=== PATIENT | female | born 1930 | race Caucasian/White ===

== ENCOUNTER 2016-07-18 12:59 | Inpatient (IN) | payer MEDICARE, BC ==
[2016-07-18 14:26] LABS: Hematocrit 40 % (35-47); Mean Corpuscular HGB Conc 33 g/dl (31-36); Mean Corpuscular Hemoglobin 34 pg (27-31); Mean Corpuscular Volume 102 fL (80-97); Mean Platelet Volume 8 um3 (7.4-10.4); Red Blood Count 3.88 10^6/ul (4.0-5.4); Red Cell Distribution Width 18 % (10.5-15); White Blood Count 14.2 10^3/ul (3.5-10.8)
[2016-07-18] MEDS ORDERED: Morphine INJ* 10 MG/ML 1 ML CARPUJECT IV ONE ×2 (14:43→16:19)
[2016-07-18 18:20] LABS: Albumin 3.6 g/dL (3.2-5.2); BUN/Creatinine Ratio 21.5 (8-20); Calcium 8.8 mg/dL (8.6-10.3); EGFR African American 111.1 (>60); EGFR Non-African American 86.4 (>60); Globulin 3.1 g/dL (2-4); Potassium 3.7 mmol/L (3.5-5.0); Total Bilirubin 0.6 mg/dL (0.2-1.0); Total Protein 6.7 g/dL (6.4-8.9)
[2016-07-18] MEDS ORDERED: Iohexol 350* (CONTRAST) 500 ML MDV IV ONE (18:22)
--- NOTE | 2016-07-18 19:14 | RAD ---
HISTORY: Right flank and rib pain, history of cancer COMPARISONS: April 21, 2016, May 22, 2016 TECHNIQUE: Multiple contiguous axial CT scans were obtained of the chest, abdomen, and pelvis after the administration of intravenous contrast. Coronal and sagittal multiplanar reformations are submitted for review.. Oral contrast was administered. Delayed images were obtained through the abdomen FINDINGS: CHEST NECK AND THYROID: The lower neck and thyroid are unremarkable. CHEST WALL: There is no lower cervical, axillary, or supraclavicular lymphadenopathy by size criteria. HEART AND PERICARDIUM: The heart is unremarkable. AORTA AND PULMONARY VASCULATURE: There is calcification of the thoracic aorta. The pulmonary vasculature is unremarkable. There is no pulmonary arterial filling defect to suggest pulmonary is in MEDIASTINUM: There is no mediastinal lymphadenopathy by size criteria. LUCA: There is no hilar lymphadenopathy by size criteria. AIRWAY AND ESOPHAGUS: The airway is unremarkable, without endobronchial filling defect. The esophagus is grossly normal. LUNG PARENCHYMA: There is centrilobular emphysematous change. PLEURA: Unremarkable. BONES AND SOFT TISSUES: There is diffuse osteopenia. Degenerative changes are noted of the spine. There is a nondisplaced left-sided rib fracture of the left 11th rib. ABDOMEN/PELVIS: LIVER: Again noted are multiple hepatic parenchymal masses. There has been progression of disease when compared to May 22, 2016. This is most evident in a confluent grouping of masses in the anterior right lobe of the liver. The largest lesion in this group measures 4.3 cm on axial image 16 compared to 3.6 cm on the previous examination. BILE DUCTS: There is no intrahepatic or extrahepatic biliary dilatation. GALLBLADDER: The gallbladder is normal, without pericholecystic inflammatory change. PANCREAS: The pancreas is normal, without mass or ductal dilatation. SPLEEN: Normal in size and appearance. UPPER GI TRACT: Evaluation of the gastrointestinal tract is limited by incomplete gastric distention. The upper GI tract is unremarkable. SMALL BOWEL \T\ MESENTERY: The small bowel is normal in contour, course, and caliber. There is no obstruction or dilatation. COLON: A colostomy is noted. The patient appears to be status post partial colectomy. ADRENALS: Normal bilaterally. KIDNEYS: The kidneys are normal in shape, size, contour, and axis. There is no hydronephrosis or nephrolithiasis. BLADDER: The bladder is smooth in contour. PELVIC ORGANS: The pelvic organs are not visualized. AORTA: There is calcific atherosclerotic disease of the abdominal aorta and its branches, without aneurysmal dilatation IVC: Unremarkable LYMPH NODES: There is no lymphadenopathy by size criteria. ABDOMINAL WALL: There is no evidence for abdominal wall hernia. BONES: There is a scoliotic curvature of the spine. There is degenerative disc disease and osteoarthritis. OTHER: There is a large amount of free intraperitoneal air IMPRESSION: 1. LARGE AMOUNT OF FREE INTRAPERITONEAL AIR CONCERNING FOR PERFORATION. THE SOURCES NOT CLEARLY EVIDENT ON THE CURRENT EXAMINATION. 2. NO PULMONARY ARTERIAL FILLING DEFECT TO SUGGEST PULMONARY EMBOLISM. 3. NONDISPLACED FRACTURE OF THE LEFT 11TH RIB. 4. AGAIN NOTED ARE HEPATIC LOW-ATTENUATION LESIONS MOST CONSISTENT WITH METASTATIC DISEASE, WITH PROGRESSION WHEN COMPARED TO MAY 22, 2016 PRELIMINARY FINDINGS WERE DISCUSSED WITH DR. DUARTE IN THE EMERGENCY DEPARTMENT AT APPROXIMATELY 7:05 PM ON JULY 18, 2016.
--- NOTE | 2016-07-18 20:23 | ED ---
Red Mcclain Anna, scribed for Alexandr Mendes MD on 07/18/16 at 1519 . Complex/Multi-Sys Presentation - HPI Summary HPI Summary: Patient is an 86-year-old female coming to [facility] presenting with sudden onset of constant right-sided pain from her shoulder to her hip that began at 1:30 this morning with no apparent cause. She describes it as located around her ileostomy from her shoulder down to her hip, radiating to her lower left abdomen. The pain is exacerbated when she raises her right hand. She reports that her head also feels stuffed and that she is congested. She denies hematuria. She has not smoked since she retired in July 1992. Her pain is not noticeably exacerbated by breathing. Patient has had cancer for a year, first colorectal then liver. She had chemotherapy treatment and radiation therapy at the same time. She is now just receiving chemotherapy treatment. - History Of Current Complaint Chief Complaint: EDFlankPain Time Seen by Provider: 07/18/16 13:48 Hx Obtained From: Patient - Allergies/Home Medications Allergies/Adverse Reactions: Allergies Allergy/AdvReac Type Severity Reaction Status Date / Time Penicillin G AdvReac Intermediate UTI Verified 07/18/16 13:10 [From Penicillin Potassium-G] Cephalexin [From Keflex] AdvReac Diarrhea Verified 07/18/16 13:10 PMH/Surg Hx/FS Hx/Imm Hx Previously Healthy: No Endocrine/Hematology History: Denies: Hx Diabetes Cardiovascular History: Reports: Hx Hypertension - WELL CONTROLLED Denies: Hx Congestive Heart Failure, Hx Pacemaker/ICD GI History: Reports: Other GI Disorders - RECTAL CANCER History: Reports: Hx Renal Disease - abnormal gfr Denies: Hx Dialysis Musculoskeletal History: Reports: Hx Arthritis - HANDS ,FEET, KNEES, SHOULDER Sensory History: Reports: Hx Cataracts - BILATERAL, Hx Contacts or Glasses - GLASSES Denies: Hx Hearing Aid Opthamlomology History: Reports: Hx Cataracts - BILATERAL, Hx Contacts or Glasses - GLASSES Neurological History: Reports: Other Neuro Impairments/Disorders - M[facility]ONS NEUROMA Psychiatric History: Denies: Hx Panic Disorder - Cancer History Cancer Type, Location and Year: RECTAL CA - 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 1964 HYSTERECTOMY [facility]. 1996 RIGHT FOOT BUNIONECTOMY [facility]. 10/2013 & 11/2013 CATARCT EXTRACTION [facility] [place]. Lt REVISION - FOOT- 01/2014, ileostomy Hx Anesthesia Reactions: No Infectious Disease History: No Infectious Disease History: Reports: Hx Clostridium Difficile - 2014 Denies: Traveled Outside the in Last 30 Days - Family History Known Family History: Positive: Other - Arthritis - Social History Occupation: Retired Lives: Alone Alcohol Use: None Alcohol Amount: none for over a year Hx Substance Use: No Substance Use Type: Reports: None Hx Tobacco Use: Yes Smoking Status (MU): Former Smoker Type: Cigarettes Amount Used/How Often: 1 PPD FOR 44 YRS Length of Time of Smoking/Using Tobacco: 44 YRS Have You Smoked in the Last Year: No Review of Systems ENT: Other - congestion Positive: Abdominal Pain Positive: Myalgia - right-sided pain Positive: Headache - "stuffed head" All Other Systems Reviewed And Are Negative: Yes Physical Exam - Summary Physical Exam Summary: General: Visibly uncomfortable, pleasant, alert HEENT: Moist mucosa, pupils equal Neck: soft, supple, no adenopathy, no edema Heart: S1, S2, RRR, no murmurs, rubs, or gallops Lungs: Clear to auscultation, breathing comfortable, no wheezes or rales, diminished breath sounds bilaterally Abdominal: Soft, flat, obvious tenderness diffusely about ileostomy, which is full of stool and gas. Ileostomy itself appears pink. Extremities: No edema, no calf tenderness, soft, Musculoskeletal: No midline spinal percussion tenderness, Positive right CVA tenderness, No lumbar spine tenderness, No pelvic tenderness, No SI tenderness. Straight leg raise negative. Strength bilateral lower extremities 5/5. Neuro: Alert and oriented x 3, No numbness or weakness Psych: Logical, coherent Triage Information Reviewed: Yes Vital Signs On Initial Exam: Initial Vitals Temp Pulse Resp BP Pulse Ox 98 F 86 16 156/58 96 07/18/16 13:07 07/18/16 13:07 07/18/16 13:07 07/18/16 13:07 07/18/16 13:07 Vital Signs Reviewed: Yes - Johnson Coma Scale Coma Scale Total: 15 Diagnostics - Vital Signs Vital Signs Temp Pulse Resp BP Pulse Ox 07/18/16 15:00 81 151/58 92 07/18/16 14:30 82 145/58 92 07/18/16 14:00 86 158/63 95 07/18/16 13:53 83 95 07/18/16 13:51 158/64 07/18/16 13:07 98 F 86 16 156/58 96 - Laboratory Lab Results: Lab Results 07/18/16 07/18/16 Range/Units 14:00 14:00 WBC 14.2 H (3.5-10.8) 10^3/ul RBC 3.88 L (4.0-5.4) 10^6/ul Hgb 13.0 (12.0-16.0) g/dl Hct 40 (35-47) % MCV 102 H (80-97) fL MCH 34 H (27-31) pg MCHC 33 (31-36) g/dl RDW 18 H (10.5-15) % Plt Count 319 (150-450) 10^3/ul MPV 8 (7.4-10.4) um3 Neut % (Auto) 91.9 H (38-83) % Lymph % (Auto) 3.8 L (25-47) % Carolina % (Auto) 3.9 (1-9) % Eos % (Auto) 0.1 (0-6) % Baso % (Auto) 0.3 (0-2) % Absolute Neuts (auto) 13.0 H (1.5-7.7) 10^3/ul Absolute Lymphs (auto) 0.5 L (1.0-4.8) 10^3/ul Absolute Monos (auto) 0.5 (0-0.8) 10^3/ul Absolute Eos (auto) 0 (0-0.6) 10^3/ul Absolute Basos (auto) 0 (0-0.2) 10^3/ul Absolute Nucleated RBC 0.01 10^3/ul Nucleated RBC % 0.1 INR (Anticoag Therapy) 0.88 L (0.89-1.11) Result Diagrams: 07/18/16 14:00 07/18/16 14:00 Lab Statement: Any lab studies that have been ordered have been reviewed, and results considered in the medical decision making process. - CT CT Abd/Pel CT Interpretation: Positive (See Comments) CT Interpretation Completed By: Radiologist - IMPRESSION: 1. LARGE AMOUNT OF FREE INTRAPERITONEAL AIR CONCERNING FOR PERFORATION. THE SOURCES NOT CLEARLY EVIDENT ON THE CURRENT EXAMINATION. 2. NO PULMONARY ARTERIAL FILLING DEFECT TO SUGGEST PULMONARY EMBOLISM. 3. NONDISPLACED FRACTURE OF THE LEFT 11TH RIB. 4. AGAIN NOTED ARE HEPATIC LOW-ATTENUATION LESIONS MOST CONSISTENT WITH METASTATIC DISEASE, WITH PROGRESSION WHEN COMPARED TO MAY 22, 2016. PRELIMINARY FINDINGS WERE DISCUSSED WITH DR. MENDES IN THE EMERGENCY DEPARTMENT AT APPROXIMATELY 7:05 PM ON JULY 18, 2016. Complex Multi-Symp Course/Dx Assessment/Plan: She presents with right flank pain. We discovered abdominal perforations. She did have obvious abdominal tenderness as well on exam. Flank pain appears referred. I was expecting to find metastatic disease to rib and pathologic fractures as her complaint was mainly flank and back pain. Unfortunately, we found a perforated bowel. Shes going to be seen by Dr. Jones. Currently, there are no clear signs of sepsis. She did have a white count of 14 but no fever in triage and a heart rate of 80. - Diagnoses Provider Diagnoses: Bowel perforation, Right flank pain - Physician Notifications Discussed Care Of Patient With: Dr. Jones (surgery) at 19:10. Agrees to come and discuss care with patient. Discharge - Discharge Plan Condition: Guarded Disposition: ADMITTED TO [facility] The documentation as recorded by the Red carrasco Anna accurately reflects the service I personally performed and the decisions made by me, Alexandr Mendes MD.
[2016-07-18] MEDS ORDERED: Morphine INJ* 2 MG/ML 1 ML CARPUJECT ONE (21:03)
[2016-07-18] MEDS ORDERED: Morphine INJ* 2 MG/ML 1 ML CARPUJECT IV ONE (21:04)
[2016-07-18] MEDS ORDERED: fentaNYL* 50 MCG/ML 2 ML VIAL (100 MCG VIAL) ONE ×2 (21:21→21:56)
[2016-07-18] MEDS ORDERED: metroNIDAZOLE IV 500 MG/100ML* 500 MG/100 ML BAG IVPB ONE (21:31)
[2016-07-18] MEDS ORDERED: Bupivacaine 0.5% W/EPI SDV* 30 ML VIAL ONE (21:33)
[2016-07-18] MEDS ORDERED: fentaNYL* 50 MCG/ML 5 ML VIAL (250 MCG VIAL) ONE (21:57)
[2016-07-18] MEDS ORDERED: Midazolam* 1 MG/ML 2 ML VIAL (2 MG) ONE ×2 (21:58→23:11)
[2016-07-18] MEDS ORDERED: Gentamicin ADULT (*) 300 MG in NS 0.9% 100 ML* 100 ML IVPB ONE (22:00)
[2016-07-18] MEDS ORDERED: Rocuronium* 10 MG/ML VIAL ONE (22:53)
[2016-07-18] MEDS ORDERED: Succinylcholine* 20 MG/ML 10 ML VIAL ONE (23:13)
[2016-07-18] MEDS ORDERED: Etomidate* 2 MG/ML 10 ML VIAL ONE (23:13)
[2016-07-18] MEDS ORDERED: HYDROmorphone INJ* 1 MG/ML CARPUJECT SYRINGE ONE (23:13)
[2016-07-18] MEDS ORDERED: Dexamethasone IV* 4 MG/ML 1 ML (4 MG) ONE (23:13)
[2016-07-18] MEDS ORDERED: Ondansetron INJ* 2 MG/ML VIAL ONE (23:13)
[2016-07-18] MEDS ORDERED: Lidocaine 2% MPF* 2 ML VIAL ONE (23:13)
[2016-07-18] MEDS ORDERED: Propofol* 10 MG/ML 20 ML BTL IV PUSH ONE (23:13)
--- NOTE | 2016-07-18 23:30 | HP ---
HISTORY AND PHYSICAL: DATE OF ADMISSION: 07/18/16 LOCATION: The patient seen in the emergency room on 07/18/16. HISTORY OF PRESENT ILLNESS: I was contacted by the emergency room staff to evaluate Ms. Guillory, an 86-year-old female, with a history of rectal cancer, status post low anterior resection and diverting loop ileostomy in October of this year who has frequent visits recently with prolapsed ileostomy, who now presents with acute onset of right flank pain starting yesterday at 11 p.m. Pain worsened keeping her up through the night and through the day. Friends came to visit and called the ambulance and the patient presented for this purpose. She has had decreased appetite, nausea. No vomiting and no appetite. The patient denies any previous similar symptoms. She is currently on chemotherapy regimen, which include Avastin and Xeloda, her last dose was on . The patient's workup in the emergency room included labs and a CT scan of the abdomen and pelvis as well as chest with p.o. contrast. Concern for free air and perforated intestine was entertained and surgical consultation was called. The patient states that the pain has no relief. It is mostly on the right side and right flank. She continues to have ileostomy output. She has been utilizing a type of spandex garment to help keep her ileostomy from prolapsing. PAST MEDICAL HISTORY: Hypertension, rectal cancer as described. MEDICATIONS: Include I believe lisinopril and the chemotherapy agents as described. The patient was recently on a short course of prednisone. ALLERGIES: She is allergic to PENICILLIN and KEFLEX. SOCIAL HISTORY: She lives alone. She is a former smoker. Her of pancreatic cancer. The patient has 2 sons, one is the healthcare proxy and other lives in a jail. She denies alcohol use. She has a cat. She otherwise has a high functional status. REVIEW OF SYSTEMS: A 10-point review of systems suggest no other pertinent positives and negatives other than those mentioned in the HPI. PHYSICAL EXAMINATION GENERAL: Alert and oriented x3, in distress, lying on stretcher on her back. VITAL SIGNS: She is afebrile. Heart rate 80s to 90s, blood pressure normotensive, O2 sat in the high 90s. HEENT: Normocephalic, atraumatic. Sclerae anicteric. Mucous membranes are dry. NECK: No lymphadenopathy. LUNGS: Clear to auscultation bilaterally with a poor inspiratory effort and tenderness along the right anterior rib cage. ABDOMEN: Tender throughout, tympanic with tenderness to precaution. Ileostomy is pink with liquid stool, nonbloody. CVA tenderness on the right. Antoine catheter inserted during her workup and shows dark colored urine. RECTAL: Exam is not performed. LABORATORY DATA: Labs reviewed, shows an elevated white count of 14.2 with left shift, H and H 13/40, which is higher than her baseline. INR 0.88. Metabolic panel shows normal anion gap. CAT scan of the abdomen and pelvis was reviewed. She has a large amount of free intraperitoneal air concerning for perforation of unclear source. The patient does have contrast extending to the ileostomy. Colon is decompressed without obvious lesion. Multiple hepatic parenchymal masses with progression when compared to early May study. IMPRESSION: Likely abdominal catastrophe in a patient with significant history , now on chemotherapy agents, who represent high risk for intervention, but will likely not survive any nonoperative attempt. I described her the diagnosis of likely perforated bowel and abdominal sepsis. The patient understands her prognosis stating that she had a "50% chance of surviving with chemotherapy." She wishes to proceed with any intervention. At this point, I can only recommend a laparoscopy with possible laparotomy to evaluate where this likely source is with the differential diagnosis strongly including small bowel as well as possible peptic ulcer, less likely colon perforation from recurrent cancer since . The patient understands the critical nature of this plan and strong possibility of not surviving surgical intervention as well. She understands the possible complications, which included but not limited to prolonged hospitalization, wound dehiscence, evisceration, poor wound healing, need for return to surgery, pulmonary embolism, and even . She will receive preoperative antibiotics, will likely stay intubated in the postoperative period. She has put a call to her son, who will be trying to get back from vacation. He is the healthcare proxy and we will be reaching out to him; but currently I believe the patient is able to make these decisions. She describes that she does not want anything mechanical to keep her alive and this includes tube feeds if this becomes necessary. As I am only meeting Ms. Guillory today, I have discussed this with her and I feel confident moving forward with the understanding that she does not wish to undergo prolonged mechanical ventilation or tube feeds if required. We will take these requests seriously. We will take her to the OR now and try to see her as best we can through this difficult course. CC: Abelino Perez MD; [facility]; Altagracia Hart MD * [id number]/[facility] #: [id number] MTDD
--- NOTE | 2016-07-19 00:16 | SURGPN ---
Brief Operative Note - Surgery Procedures: Procedures Pre-OP Diagnoses: abdominal pain, bowel perforation Post-op Diagnosis: perforated duodenal ulcer Procedure: Diagnostic laparoscopy, exploratory laparotomy, repair of perforated duodenal ulcer, abdominal washout Surgeon: Robert Asst: none Anethesia: ALEJANDRA Crowe EBL: >50 cc IVF: 1800cc LR Specimen: none Drains: #10 TOM drain Complications: None
[2016-07-19] MEDS ORDERED: fentaNYL* 50 MCG/ML 2 ML VIAL (100 MCG VIAL) IV PRN (00:27)
[2016-07-19] MEDS ORDERED: Ondansetron INJ* 2 MG/ML VIAL IV PRN (00:27)
[2016-07-19] MEDS ORDERED: PROCHLORPERAZINE INJ 5 MG/ML 2 ML VIAL IV PRN (00:27)
[2016-07-19] MEDS ORDERED: HYDROmorphone INJ* 1 MG/ML CARPUJECT SYRINGE IV PRN (00:27)
[2016-07-19] MEDS ORDERED: DiMENhydriNATE IV* 50 MG/ML VIAL IV PUSH PRN (00:27)
[2016-07-19] MEDS ORDERED: Levofloxacin 500 MG IVPREMIX(* 500 MG/100 ML BAG IVPB ONE (02:30)
[2016-07-19] MEDS: Heparin VIAL(*) 5000 UNITS/ML VIAL (FIVE THOUSAND) SUBCUT SCH ×3 (05:56→21:52)
[2016-07-19] MEDS: metroNIDAZOLE IV 500 MG/100ML* 500 MG/100 ML BAG IVPB SCH ×3 (05:58→22:34)
[2016-07-19 06:10] LABS: Hematocrit 35 % (35-47); Hemoglobin 11.6 g/dl (12.0-16.0); Mean Corpuscular HGB Conc 33 g/dl (31-36); Mean Corpuscular Hemoglobin 34 pg (27-31); Mean Corpuscular Volume 103 fL (80-97); Mean Platelet Volume 8 um3 (7.4-10.4); Red Blood Count 3.44 10^6/ul (4.0-5.4); Red Cell Distribution Width 18 % (10.5-15); White Blood Count 15.1 10^3/ul (3.5-10.8)
[2016-07-19 06:24] LABS: Albumin 2.8 g/dL (3.2-5.2); BUN/Creatinine Ratio 22.7 (8-20); C Reactive Protein 96.29 mg/L (< 5.00); Calcium 7.8 mg/dL (8.6-10.3); EGFR African American 109.2 (>60); EGFR Non-African American 84.9 (>60); Globulin 2.7 g/dL (2-4); Potassium 4.4 mmol/L (3.5-5.0); Total Bilirubin 0.5 mg/dL (0.2-1.0); Total Protein 5.5 g/dL (6.4-8.9)
--- NOTE | 2016-07-19 09:18 | PN ---
Progress Note - Progress Note SOAP: Subjective: []Weak and tired today. Pain for several days. No fever. Last took Xeloda 7 days ago, last Avastin 07/07. Pain is controlled. Dry mouth, NPO Active Medications Generic Name Dose Route Start Last Admin Trade Name Freq PRN Reason Stop Dose Admin Heparin Sodium (Porcine) 5,000 units 07/19/16 06:00 07/19/16 05:56 Heparin Vial(*) SUBCUT 5,000 units Q8HR KATHARINA Administration Hydromorphone HCl 0.5 mg 07/19/16 00:23 Dilaudid Iv* IV Q1H PRN PAIN - SEVERE Lactated Ringer's 1,000 mls @ 100 mls/hr 07/19/16 01:00 07/19/16 02:06 Lactated Ringers 1000 Ml Bag* IV 100 mls/hr .per rate KATHARINA Administration Metronidazole/Sodium Chloride 500 mg in 100 mls @ 100 mls/hr 07/19/16 06:30 07/19/16 05:58 Flagyl 500 Mg Ivpb* IVPB 100 mls/hr Q8H KATHARINA Administration Levofloxacin/Dextrose 250 mg in 50 mls @ 50 mls/hr 07/20/16 03:00 Levaquin 250 Mg Ivpremx(*) IVPB Q24H KATHARINA Objective: [] Vital Signs Temp Pulse Resp BP Pulse Ox 98.1 F 76 13 120/42 97 07/19/16 07:22 07/19/16 09:00 07/19/16 09:00 07/19/16 09:00 07/19/16 09:00 HEENT - NGT, dry mouth CTA but decreased sounds RRR S1S2 Abd - no BS, did not look at incision, ostomy looks fine. Ext no C/C/E Laboratory Last Values WBC 15.1 10^3/ul (3.5-10.8) H 07/19/16 05:48 RBC 3.44 10^6/ul (4.0-5.4) L 07/19/16 05:48 Hgb 11.6 g/dl (12.0-16.0) L 07/19/16 05:48 Hct 35 % (35-47) 07/19/16 05:48 MCV 103 fL (80-97) H 07/19/16 05:48 MCH 34 pg (27-31) H 07/19/16 05:48 MCHC 33 g/dl (31-36) 07/19/16 05:48 RDW 18 % (10.5-15) H 07/19/16 05:48 Plt Count 242 10^3/ul (150-450) 07/19/16 05:48 MPV 8 um3 (7.4-10.4) 07/19/16 05:48 Neut % (Auto) 93.4 % (38-83) H 07/19/16 05:48 Lymph % (Auto) 2.3 % (25-47) L 07/19/16 05:48 Sheridan % (Auto) 4.2 % (1-9) 07/19/16 05:48 Eos % (Auto) 0 % (0-6) 07/19/16 05:48 Baso % (Auto) 0.1 % (0-2) 07/19/16 05:48 Absolute Neuts (auto) 14.1 10^3/ul (1.5-7.7) H 07/19/16 05:48 Absolute Lymphs (auto) 0.4 10^3/ul (1.0-4.8) L 07/19/16 05:48 Absolute Monos (auto) 0.6 10^3/ul (0-0.8) 07/19/16 05:48 Absolute Eos (auto) 0 10^3/ul (0-0.6) 07/19/16 05:48 Absolute Basos (auto) 0 10^3/ul (0-0.2) 07/19/16 05:48 Absolute Nucleated RBC 0.01 10^3/ul 07/19/16 05:48 Nucleated RBC % 0 07/19/16 05:48 INR (Anticoag Therapy) 0.88 (0.89-1.11) L 07/18/16 14:00 Sodium 134 mmol/L (133-145) 07/19/16 05:48 Potassium 4.4 mmol/L (3.5-5.0) 07/19/16 05:48 Chloride 103 mmol/L (101-111) 07/19/16 05:48 Carbon Dioxide 26 mmol/L (22-32) 07/19/16 05:48 Anion Gap 5 mmol/L (2-11) 07/19/16 05:48 BUN 15 mg/dL (6-24) 07/19/16 05:48 Creatinine 0.66 mg/dL (0.51-0.95) 07/19/16 05:48 Est GFR ( Amer) 109.2 (>60) 07/19/16 05:48 Est GFR (Non-Af Amer) 84.9 (>60) 07/19/16 05:48 BUN/Creatinine Ratio 22.7 (8-20) H 07/19/16 05:48 Glucose 142 mg/dL (70-100) H 07/19/16 05:48 Calcium 7.8 mg/dL (8.6-10.3) L 07/19/16 05:48 Total Bilirubin 0.50 mg/dL (0.2-1.0) 07/19/16 05:48 AST 43 U/L (13-39) H 07/19/16 05:48 ALT 20 U/L (7-52) 07/19/16 05:48 Alkaline Phosphatase 116 U/L (34-104) H 07/19/16 05:48 C-Reactive Protein 96.29 mg/L (< 5.00) H 07/19/16 05:48 Total Protein 5.5 g/dL (6.4-8.9) L 07/19/16 05:48 Albumin 2.8 g/dL (3.2-5.2) L 07/19/16 05:48 Globulin 2.7 g/dL (2-4) 07/19/16 05:48 Albumin/Globulin Ratio 1.0 (1-3) 07/19/16 05:48 Lipase 59 U/L (11.0-82.0) 07/19/16 05:48 CT- There is free air, increase in liver lesions from April. Assessment: []86 year old with metastatic rectal cancer on Avastin and Xeloda who presents with perforated ulcer yesterday, surgery and stable today. Plan: []1. Case discussed with Dr. Jones. Will follow recovery from surgery. Avastin will increase risk of poor wound healing. Dr. Jones worked to minimize incisions. 2. Ulcer, PPI IV. NPO at this time. Minimize steroids. 3. Rectal cancer. She will need additional therapy if she recovers from acute event. Did not discuss CT scan results today. She is on first line therapy for metastatic disease.
--- NOTE | 2016-07-19 09:23 | PN ---
Progress Note - Progress Note SOAP: Subjective: Pt seen and examined. Much less pain. NGT is bothersome. no appetite Objective: af vss NGT min output lungs clear b/l but weak abdo: soft/less distended. incisional tenderness. TOM serous no calf tenderness; ext warm labs noted CXR seen, report P, NGT in stomach Assessment: POD0 oversew and patch of perf DU, HD stable Plan: change IVF NPO, NGT ABX transfer to floor [facility] to cover me until 07/22/16
[2016-07-19] MEDS: D5W 1/2 NS 1000 ML BAG* 1,000 ML IV SCH (11:37)
--- NOTE | 2016-07-19 11:42 | RAD ---
INDICATION: Evaluate placement of nasogastric tube COMPARISON: None. TECHNIQUE: Single AP portable view of the chest was obtained. FINDINGS: Image quality is compromised due to the relative inferiority of a portable chest x-ray. Again seen is a right subclavian vein Mediport with the tip terminating at the cavoatrial junction. A gastric tube is seen overlying the midline mediastinum with the tip terminating well below the level of the diaphragm. The heart and mediastinum exhibit normal size and contour. There is stable calcification at the arch of the aorta. Similar the previous chest x-ray the lungs appear hyperaerated. There is no evidence of a large pleural effusion. Visualized bones are normal for the patient's age. IMPRESSION: Interval placement of a gastric tube with the tip terminating well below the level of diaphragms, presumably at the gastric antrum.
[2016-07-19] MEDS: HYDROmorphone INJ* 1 MG/ML CARPUJECT SYRINGE IV PRN ×2 (16:39→21:48)
[2016-07-20] MEDS: HYDROmorphone INJ* 1 MG/ML CARPUJECT SYRINGE IV PRN ×8 (01:12→22:01)
--- NOTE | 2016-07-20 01:38 | OP ---
DATE OF OPERATION: 07/19/16 - ROOM #335 DATE OF : 30 SURGEON: Blaine Jones MD STRADDLE CARRIER OPERATOR: None. ANESTHESIOLOGIST: Dr. Crowe. ANESTHESIA: General. PRE-OP DIAGNOSES: Abdominal pain and bowel perforation. POST-OP DIAGNOSIS: Perforated duodenal ulcer. OPERATIVE PROCEDURE: Diagnostic laparoscopy, exploratory laparotomy, repair of perforated duodenal ulcer, abdominal washout. FLUIDS: Less than 50 cc of crystalloid fluid given. IV FLUIDS: 1800 cc of lactated Ringer's. SPECIMEN: None. DRAIN: #10 TOM drain left. DESCRIPTION OF PROCEDURE: The patient was identified in the preoperative area and brought to the OR placed on the operating table in the supine position. Preoperative antibiotics were given. Sequential devices were placed on bilateral lower extremities. General anesthesia was induced. The patient's abdomen was prepped and draped with Betadine including the ileostomy. An Ioban was placed over the ileostomy that had been covered with an ABD pad and a time- out was performed. A left upper quadrant incision was made and this was deepened down to the anterior fascia which was elevated and Veress needle inserted into the abdominal cavity which was then allowed to insufflate to a pressure of 15 mmHg. The patient tolerated the insufflation well. Veress needle was then removed and a 5-mm trocar was inserted into the abdominal cavity. Review of the abdomen showed some exudative fluid around the liver. Large liver lesions were identified. Ileostomy was identified without any exudate, both afferent and efferent limbs. It was unclear which was which. The midline showed a loop of a small intestine and omentum adhered to the anterior abdominal wall around the umbilicus. A 5-mm trocar was then placed in the subxiphoid area and we suctioned the greenish fluid from just above the liver. Review of the pelvis showed some serous fluid as well and another 5-mm trocar was then placed in the periumbilical site. Table was placed in a head-up position and we were able to identify the stomach which showed no exudative material. It extended towards the falciform where the proximal duodenum was adhered. There was an area that looked somewhat suspicious but without exudative tissue but with discoloration. This was attempted to be bluntly taken off the falciform but did not come off easily. Review of the gallbladder showed mildly dilated gallbladder without inflammation. Table was placed in a Trendelenburg and the small bowel was run from the ileostomy [id number] with bowel graspers and no findings were seen. Prior to starting this, however, there was a small seed; this was suctioned out. The small bowel was adhered to itself but I did not find any discrete lesions. An incision was made to open the abdomen and trocars removed and the upper midline incision was made. We entered the abdomen and identified the falciform ligament. This was pulled up along with the stomach and duodenum and now this initial area that had been identified was peeled back slowly exposing a perforation. The edges showed some pallor. It was just distal to the pylorus just under a centimeter. The edges were cleaned off with Metzenbaum scissors and defect was approximately 8 mm x 8 mm. The decision was made to primarily close this with 3-0 silk sutures, 4 silk sutures in all were placed. These were tied gently to reapproximate the bowel and then a portion of the falciform was freed up without losing its blood supply and placed on top of the site. Omentum was not available, so we utilized this fatty material. It appeared well vascularized and patched the closure. It appeared intact and was dropped back into the abdomen. We then copiously irrigated the abdomen. This was suctioned off. A #10 TOM drain was brought in through the left upper quadrant port site and placed along the side of the patch and extending to the right paracolic gutter. Next, the upper midline incision was reapproximated with #1 Prolene sutures in a figure-of- eight fashion. The wound was then irrigated and reapproximated with skin susan along with the additional 2 port site incisions. Sterile dressing was applied. The patient was awoken up in the OR, extubated and transferred to the PACU in critical condition for plan to admission to the ICU. CC: Dr. Abelino Perez; Dr. Altagracia Hart; [facility]* [id number]/[facility] #: [id number] [facility]ITAL[facility]
[2016-07-20] MEDS: Levofloxacin 250 MG IVPREMX(*) 250 MG/50 ML BAG IVPB SCH (03:16)
[2016-07-20] MEDS: metroNIDAZOLE IV 500 MG/100ML* 500 MG/100 ML BAG IVPB SCH ×3 (06:19→22:01)
[2016-07-20] MEDS: Heparin VIAL(*) 5000 UNITS/ML VIAL (FIVE THOUSAND) SUBCUT SCH ×3 (06:21→22:03)
[2016-07-20] MEDS: D5W 1/2 NS 1000 ML BAG* 1,000 ML IV SCH ×2 (08:02→22:06)
[2016-07-20] MEDS: Pantoprazole IV* 40 MG IV SCH ×2 (09:53→20:15)
--- NOTE | 2016-07-20 10:30 | PN ---
Progress Note - Progress Note SOAP: Subjective: C/o pain and dry mouth. Wants NGT out. Objective: Vital Signs Temp 97.7 F 07/20/16 06:56 Pulse 96 07/20/16 06:56 Resp 16 07/20/16 09:49 BP 170/52 07/20/16 06:56 Pulse Ox 91 07/20/16 06:56 Intake & Output 07/19/16 07/20/16 07/20/16 18:59 06:59 18:59 Intake Total 498 379 6122 Output Total 110 810 200 Balance 763 -700 898 Intake: IV Fluids 770 1098 ABX - FLAGYL 110 D5W 1/2 NS 988 LR 770 IVPB 103 110 ABX - FLAGYL 110 LR 103 Oral 0 0 0 Output: NG Tube Drainage Amount 100 TOM #1 110 210 50 Urine 500 150 Ileostomy 0 Other: Estimated Void Small # Voids 1 Abd: Incis c/d/i; no erythema; TOM serous. Tender at incision. Assessment: POD#1 s/p open repair of perf DU. Plan: Cont NGT/TOM. Protonix BID. IV analgesics. UGI xray in am.
[2016-07-20] MEDS: Metoprolol Tartrate IV* 1 MG/ML 5 ML VIAL IV SCH ×2 (14:04→20:12)
[2016-07-20 16:26] LABS: Hematocrit 40 % (35-47); Mean Corpuscular HGB Conc 33 g/dl (31-36); Mean Corpuscular Hemoglobin 34 pg (27-31); Mean Corpuscular Volume 104 fL (80-97); Mean Platelet Volume 8 um3 (7.4-10.4); Red Blood Count 3.82 10^6/ul (4.0-5.4); Red Cell Distribution Width 18 % (10.5-15); White Blood Count 16.7 10^3/ul (3.5-10.8)
[2016-07-20 16:31] LABS: Comments Flag Yes
[2016-07-20 16:32] LABS: Add Diff/Slide Review? Slide Review Added
[2016-07-21] MEDS: Metoprolol Tartrate IV* 1 MG/ML 5 ML VIAL IV SCH ×4 (02:37→20:01)
[2016-07-21] MEDS: Levofloxacin 250 MG IVPREMX(*) 250 MG/50 ML BAG IVPB SCH (02:40)
[2016-07-21] MEDS: HYDROmorphone INJ* 1 MG/ML CARPUJECT SYRINGE IV PRN ×7 (03:07→22:25)
[2016-07-21] MEDS: Heparin VIAL(*) 5000 UNITS/ML VIAL (FIVE THOUSAND) SUBCUT SCH ×3 (06:10→22:21)
[2016-07-21] MEDS: metroNIDAZOLE IV 500 MG/100ML* 500 MG/100 ML BAG IVPB SCH ×3 (06:11→22:21)
[2016-07-21] MEDS: Pantoprazole IV* 40 MG IV SCH ×2 (08:05→20:01)
--- NOTE | 2016-07-21 08:42 | RAD ---
INDICATION: Postoperative fever COMPARISON: Chest x-ray dated July 19, 2016 TECHNIQUE: PA and lateral views of the chest were obtained. FINDINGS: The patient's right subclavian vein Mediport terminates at the cavoatrial junction and is unchanged from the previous chest x-ray. The heart and mediastinum are normal in size and contour. Similar to the previous chest x-ray the lungs appear hyperaerated. There has been interval appearance of density overlying the right lung base that obscures the right hemidiaphragm and causes costophrenic angle blunting. Visualized bones are normal for the patient's age. There is no radiographic evidence of free air beneath the diaphragm IMPRESSION: INTERVAL APPEARANCE OF DENSITY OBSCURING THE RIGHT HEMIDIAPHRAGM AND RIGHT LUNG BASE COULD REPRESENT PLEURAL EFFUSION AND/OR COMPRESSIVE ATELECTASIS.
--- NOTE | 2016-07-21 09:20 | PN ---
Progress Note - Progress Note SOAP: Subjective: Pain is better but still with incisional discomfort. Some shortness of breath with difficulty bringing up secretions with NGT. No CP Objective: afebrile Temp Pulse Resp BP Pulse Ox 97.2 F 79 16 173/69 94 07/21/16 07:46 07/21/16 07:46 07/21/16 07:46 07/21/16 07:46 07/21/16 07:46 Intake & Output 07/19/16 07/20/16 07/21/16 07/22/16 06:59 06:59 06:59 06:59 Intake Total 2808 983 2268 Output Total 929 450 1352 Balance 2638 63 733 Weight 105 lb 13.15 oz Intake: IV Fluids 2687 770 2048 ABX - FLAGYL 110 D5W 1/2 NS 1938 LR 2187 770 Normal Saline 0.9% 500 IVPB 121 213 220 ABX - FLAGYL 110 220 LR 121 103 Oral 0 0 Output: NG Tube Drainage Amount 100 100 TOM #1 20 320 260 Urine 500 1175 Antoine 150 Colostomy 0 Ileostomy 0 Other: Estimated Void Small # Voids 1 PEX: Comfortable in bed-awake and alert Lungs are coarse with upper respiratory secretions No rales Abd is soft and non-distended. Incision is CDI and TOM with some serous fluid in bulb Bowel sounds are present. Ileostomy slightly prolapsed. Laboratory Results - last 24 hr 07/20/16 16:18 WBC 16.7 H RBC 3.82 L Hgb 13.0 Hct 40 MCV 104 H MCH 34 H MCHC 33 RDW 18 H Plt Count 306 MPV 8 Neut % (Auto) 86.8 H Lymph % (Auto) 2.8 L Benson % (Auto) 9.8 H Eos % (Auto) 0.1 Baso % (Auto) 0.5 Absolute Neuts (auto) 14.5 H Absolute Lymphs (auto) 0.5 L Absolute Monos (auto) 1.6 H Absolute Eos (auto) 0 Absolute Basos (auto) 0.1 Absolute Nucleated RBC 0.01 Nucleated RBC % 0 CXR and UGI reviewed Assessment: POD# 2 repair of perforated duodenal ulcer Rectal cancer UGI without leak CXR with probable pneumonia Plan: NGT removed Aggressive pulmonary toilet IV anbx Sips of water and ice chips OOB\PPI recheck labs in AM Dr. Rodriguez to see regarding patient request for consideration of DNR.
--- NOTE | 2016-07-21 10:02 | PN ---
Progress Note - Progress Note SOAP: Subjective: [] Not feeling well today. Has NGT out but breathing is so so. Still abdominal pain with any movement, can feel bowls moving. No BM and not sure if passing gas. Heparin Sodium (Porcine) (Heparin Vial(*)) 5,000 units SUBCUT Q8HR [facility] Last Admin: 07/21/16 06:10 Dose: 5,000 units Hydromorphone HCl (Dilaudid Iv*) 1 mg IV Q1H PRN PRN Reason: PAIN Last Admin: 07/21/16 06:07 Dose: 1 mg Lactated Ringer's (Lactated Ringers 1000 Ml Bag*) 1,000 mls @ 100 mls/hr IV .per rate [facility] Last Admin: 07/19/16 02:06 Dose: 100 mls/hr Metronidazole/Sodium Chloride (Flagyl 500 Mg Ivpb*) 500 mg in 100 mls @ 100 mls /hr IVPB Q8H [facility] Last Admin: 07/21/16 06:11 Dose: 100 mls/hr Levofloxacin/Dextrose (Levaquin 250 Mg Ivpremx(*)) 250 mg in 50 mls @ 50 mls/ hr IVPB Q24H [facility] Last Admin: 07/21/16 02:40 Dose: 50 mls/hr Dextrose/Sodium Chloride (D5w 1/2 Ns 1000 Ml Bag*) 1,000 mls @ 75 mls/hr IV PER RATE [facility] Last Admin: 07/20/16 22:06 Dose: 75 mls/hr Metoprolol Tartrate (Lopressor Iv*) 5 mg IV Q6H [facility] Last Admin: 07/21/16 08:05 Dose: 5 mg Pantoprazole Sodium (Protonix Iv*) 40 mg IV BID [facility] Last Admin: 07/21/16 08:05 Dose: 40 mg Objective: [] Vital Signs Temp Pulse Resp BP Pulse Ox 97.2 F 79 16 173/69 94 07/21/16 07:46 07/21/16 07:46 07/21/16 07:46 07/21/16 07:46 07/21/16 07:46 HEENT- Mucosa dry but no lesions. Port right chest Decreased BS and congested, poor sounds at bases. RRR S1S2 She has BS, TOM drain in place, tender. no air in bag. Ext w/o edema and is warm Assessment: []86 year old metastatic cancer on Xeloda and Avastin, progressive disease from April, last bevicizumab was on 07/07 at 5 mg/kg. Now status post perforated ulcer and surgical repair. Plan: []1. Discussed risk of complication, perforation with Dr. Shore and with patient. Largest study I could find was 75 pts with abdominal surgery on Avastin and 15% complication rate, events up to 60 days post op. Also increasing risk of surgery is her progressive cancer, poor functional status post op and age. 2. Discussed overall prognosis and value of aggressive care. She wants to be DNR and DNI. Molst completed. 3. Fever. Pnemonia is possible, UTI, no evidence of wound infection. On Levoquin/Falgyl. CXR shows poor expansion. Blood cultures pending. Will escalate antibiotics if needed in 48 hrs. 4. HTN. On Metoprolol, pain contributing. No change in medication today. 5. Given concerns re wound healing, start TPN until po intake. D/C IVF time with patient and chart 50 min
--- NOTE | 2016-07-21 10:12 | RAD ---
HISTORY: Status post duodenal ulcer repair, evaluate for leak COMPARISONS: CT dated July 18, 2016 TECHNIQUE: A single contrast fluoroscopic study was performed of the upper GI tract. Water-soluble liquid contrast was administered under fluoroscopic observation through pre-existing nasogastric tube. Multiple digital spot images were obtained Total fluoroscopy time is 1.3 minutes. FINDINGS: STOMACH: A gastric tube is noted. The tip is in the stomach. There is filling of the stomach which appears grossly normal for a nondistended stomach. No reflux was elicited on the current examination. DUODENUM: The duodenal bulb is not well-defined. There is extravasation of contrast in the region of the duodenal bulb. OTHER: A surgical drain is noted in the right upper quadrant IMPRESSION: EXTRAVASATION OF CONTRAST IS NOTED IN THE REGION OF THE DUODENAL BULB CONSISTENT WITH PERSISTENT PERFORATION CPT II Codes: 6045F
[2016-07-21 13:38] LABS: Albumin 2.5 g/dL (3.2-5.2); Calcium 7.8 mg/dL (8.6-10.3); EGFR African American 98.8 (>60); EGFR Non-African American 76.8 (>60); Globulin 3.1 g/dL (2-4); Magnesium 2.1 mg/dL (1.9-2.7); Phosphorus 2.9 mg/dL (2.5-5.0); Potassium 4.1 mmol/L (3.5-5.0); Total Bilirubin 0.5 mg/dL (0.2-1.0); Total Protein 5.6 g/dL (6.4-8.9)
--- NOTE | 2016-07-21 14:29 | PN ---
Progress Note - Progress Note SOAP: Subjective: She feels better with NGT out and is breathing better, Minimal abdominal pain. I reviewed the official radiology reading of the UGI done this morning. Dr. Kauffman reads a small amount of extravasation of contrast in the area of the proximal duodenum in the area of the repair. The TOM drain appears to be in good position. Her TOM remains in place and is draining a small amount of serosanguinous clear fluid-not bilious. I discussed these results with her-the area appears to be well drained and the fluid is non-bilious. At this point management will be continued NPO and TOM drainage and IV antibiotics. In addition, after being seen by Dr. Rodriguez this morning she is now DNR/DNI and she does not want any further surgical intervention. I discussed this with her at length and we will continue present care. She will be started on TPN later today, recheck labs in the morning.
[2016-07-21] MEDS: DEXTROSE TPN SCH ×13 (17:04)
[2016-07-21] MEDS: TPN TPN SCH ×13 (17:04)
[2016-07-21] MEDS: AMINO ACID INFUSION TPN SCH ×13 (17:04)
[2016-07-21] MEDS: [UNRECOGNIZED DRUG - OTHER] TPN SCH ×13 (17:04)
[2016-07-21] MEDS: WATER TPN SCH ×13 (17:04)
[2016-07-22] MEDS: HYDROmorphone INJ* 1 MG/ML CARPUJECT SYRINGE IV PRN ×5 (02:29→22:25)
[2016-07-22] MEDS: Metoprolol Tartrate IV* 1 MG/ML 5 ML VIAL IV SCH ×4 (02:39→20:24)
[2016-07-22] MEDS: Levofloxacin 250 MG IVPREMX(*) 250 MG/50 ML BAG IVPB SCH (02:39)
[2016-07-22] MEDS: Albuterol/Ipratropium NEB.SOL* Albuterol 2.5 MG/Ipratropium 0.5 MG 3 ML INH PRN (03:26)
[2016-07-22] MEDS: Heparin VIAL(*) 5000 UNITS/ML VIAL (FIVE THOUSAND) SUBCUT SCH ×3 (05:36→22:26)
[2016-07-22] MEDS: metroNIDAZOLE IV 500 MG/100ML* 500 MG/100 ML BAG IVPB SCH ×3 (06:23→22:26)
[2016-07-22 06:57] LABS: Hematocrit 38 % (35-47); Hemoglobin 12.6 g/dl (12.0-16.0); Mean Corpuscular HGB Conc 33 g/dl (31-36); Mean Corpuscular Hemoglobin 34 pg (27-31); Mean Corpuscular Volume 103 fL (80-97); Mean Platelet Volume 10 um3 (7.4-10.4); Red Blood Count 3.71 10^6/ul (4.0-5.4); Red Cell Distribution Width 18 % (10.5-15); White Blood Count 12.7 10^3/ul (3.5-10.8)
[2016-07-22 07:00] LABS: Add Diff/Slide Review? Slide Review Added; Comments Flag Yes
[2016-07-22 07:12] LABS: Albumin 2.7 g/dL (3.2-5.2); BUN/Creatinine Ratio 30.4 (8-20); Calcium 8.3 mg/dL (8.6-10.3); EGFR African American 103.7 (>60); EGFR Non-African American 80.7 (>60); Globulin 3.1 g/dL (2-4); Magnesium 2.3 mg/dL (1.9-2.7); Potassium 4.2 mmol/L (3.5-5.0); Total Bilirubin 0.4 mg/dL (0.2-1.0); Total Protein 5.8 g/dL (6.4-8.9)
[2016-07-22] MEDS: Pantoprazole IV* 40 MG IV SCH ×2 (07:40→20:24)
[2016-07-22] MEDS ORDERED: Furosemide IV* 10 MG/ML 10 ML VIAL (100 MG) IV ONE (08:31)
--- NOTE | 2016-07-22 08:31 | PN ---
Progress Note - Progress Note SOAP: Subjective: pt seen and examined. Events of last few days noted. SOB, R sided abdo pain that is slowly improving. Thirsty. Objective: Temp Pulse Resp BP SpO2 FiO2 97.2 F 83 18 176/65 97 07/22/16 07:24 07/22/16 07:24 07/22/16 07:24 07/22/16 07:24 07/22/16 07:24 on O2 NC a and o x 3, some difficulty breathing when supine lungs decreased BS b/l abdo: soft/ incisional tenderness and RUQ tenderness. no rebound, but tender to percussion TOM serous; staple line intact no calf tenderness. mild edema Labs noted Assessment: POD 3 repair of perforated ulcer, respiratory diffuculty Plan: decrease TPN Lasix abx full liquids
[2016-07-22] MEDS ORDERED: Furosemide IV* 10 MG/ML 2 ML VIAL (20 MG) IV ONE (09:00)
[2016-07-22] MEDS: TPN* 24 HR with Dextrose 50% Water* 500 ML, Amino Acid Infusion 10%* 850 ML, Lipid Emul... TPN SCH ×14 (16:56)
[2016-07-22] MEDS: DEXTROSE TPN SCH ×13 (17:06)
[2016-07-22] MEDS: AMINO ACID INFUSION TPN SCH ×13 (17:06)
[2016-07-22] MEDS: [UNRECOGNIZED DRUG - OTHER] TPN SCH ×13 (17:06)
[2016-07-22] MEDS: WATER TPN SCH ×13 (17:06)
[2016-07-22] MEDS: TPN TPN SCH ×13 (17:06)
[2016-07-23] MEDS: Metoprolol Tartrate IV* 1 MG/ML 5 ML VIAL IV SCH ×4 (02:52→21:11)
[2016-07-23] MEDS: Levofloxacin 250 MG IVPREMX(*) 250 MG/50 ML BAG IVPB SCH (02:52)
[2016-07-23] MEDS: HYDROmorphone INJ* 1 MG/ML CARPUJECT SYRINGE IV PRN ×5 (03:01→21:11)
[2016-07-23] MEDS: metroNIDAZOLE IV 500 MG/100ML* 500 MG/100 ML BAG IVPB SCH ×3 (06:24→23:21)
[2016-07-23] MEDS: Heparin VIAL(*) 5000 UNITS/ML VIAL (FIVE THOUSAND) SUBCUT SCH ×3 (06:24→21:09)
[2016-07-23 07:25] LABS: Albumin 2.4 g/dL (3.2-5.2); BUN/Creatinine Ratio 35.1 (8-20); Calcium 8.1 mg/dL (8.6-10.3); EGFR African American 129.3 (>60); EGFR Non-African American 100.6 (>60); Globulin 2.8 g/dL (2-4); Magnesium 1.9 mg/dL (1.9-2.7); Phosphorus 2.8 mg/dL (2.5-5.0); Potassium 3.5 mmol/L (3.5-5.0); Total Bilirubin 0.4 mg/dL (0.2-1.0); Total Protein 5.2 g/dL (6.4-8.9)
[2016-07-23] MEDS: Pantoprazole IV* 40 MG IV SCH ×2 (09:14→21:11)
--- NOTE | 2016-07-23 13:51 | PN ---
Progress Note - Progress Note SOAP: Subjective: pt seen and examined. She was up to urinate multiple times after lasix administration. SOB, R sided abdo pain that is slowly improving. no appetite. Remains on TPN. Objective: af vss a and o x 3, sleepy lungs decreased BS b/l abdo: soft/ incisional tenderness and RUQ tenderness. tender to percussion TOM serous; staple line intact no calf tenderness. mild edema Assessment: POD 4 repair of perforated ulcer, that may not be healing. UGi from 2 days ago read as leak of contrast, although not clear to me. Pt is DNR and no additional trips to OR would be recommended at this time. Plan: cont TPN abx full liquids OOB to ambulate pain control Hospice consult johanna pt wants to avoid seeing any new people today.
[2016-07-23] MEDS: TPN* 24 HR with Dextrose 50% Water* 500 ML, Amino Acid Infusion 10%* 850 ML, Lipid Emul... TPN SCH ×14 (16:52)
[2016-07-24] MEDS: HYDROmorphone INJ* 1 MG/ML CARPUJECT SYRINGE IV PRN ×4 (02:32→19:50)
[2016-07-24] MEDS: Metoprolol Tartrate IV* 1 MG/ML 5 ML VIAL IV SCH ×4 (02:34→19:50)
[2016-07-24] MEDS: Levofloxacin 250 MG IVPREMX(*) 250 MG/50 ML BAG IVPB SCH (02:36)
[2016-07-24 06:42] LABS: BUN/Creatinine Ratio 35.1 (8-20); Calcium 8.2 mg/dL (8.6-10.3); EGFR African American 129.3 (>60); EGFR Non-African American 100.6 (>60); Potassium 3.7 mmol/L (3.5-5.0)
[2016-07-24] MEDS: Heparin VIAL(*) 5000 UNITS/ML VIAL (FIVE THOUSAND) SUBCUT SCH ×3 (06:45→21:57)
[2016-07-24 06:54] LABS: Hematocrit 39 % (35-47); Hemoglobin 12.5 g/dl (12.0-16.0); Mean Corpuscular HGB Conc 32 g/dl (31-36); Mean Corpuscular Hemoglobin 33 pg (27-31); Mean Corpuscular Volume 102 fL (80-97); Mean Platelet Volume 9 um3 (7.4-10.4); Red Cell Distribution Width 17 % (10.5-15); White Blood Count 12.5 10^3/ul (3.5-10.8)
[2016-07-24 07:09] LABS: Magnesium 1.9 mg/dL (1.9-2.7); Phosphorus 3.4 mg/dL (2.5-5.0)
--- NOTE | 2016-07-24 07:34 | RAD ---
INDICATION: Respiratory difficulty COMPARISON: Similar chest x-ray July 21, 2016 TECHNIQUE: Single AP portable view of the chest was obtained. FINDINGS: Image quality is compromised due to the relative inferiority of a portable chest x-ray. The right subclavian vein Mediport with the tip terminating at the cavoatrial junction is unchanged in position. The heart and mediastinum exhibit normal size and contour. Similar the previous chest x-ray the lungs appear hyperaerated. Densities obscure the right greater than left lung bases causing costophrenic angle blunting. Visualized bones are normal for the patient's age. IMPRESSION: Persistent densities at the bilateral lung bases could represent pleural effusions and/or adjacent consolidation of the lower lobes. Appearance of chronic obstructive pulmonary disease is similar to previous chest x-rays.
[2016-07-24] MEDS: metroNIDAZOLE IV 500 MG/100ML* 500 MG/100 ML BAG IVPB SCH ×3 (07:54→21:59)
[2016-07-24] MEDS: Pantoprazole IV* 40 MG IV SCH ×2 (08:34→19:50)
--- NOTE | 2016-07-24 12:16 | CONSULT ---
Palliative / Hospice Consult Ordering Provider: Blaine Jones - Subjective Code Status: DNR Advance Directives Location: In Chart MOLST Part A Completed: Yes MOLST Part E Completed:: Yes HCP Completed: Yes - Son Tad Guillory - History or Present Illness History or Present Illness: This 86 year old woman was diagnosed with stage 3 colorectal cancer and began chemotherapy in July of 2015. SHe underwent colon resection in October 2015 with ileostomy, and had no adjuvant chemotherapy due to her advanced age. In December 2015 she was found to have liver metastases with elevated CEA, and began chemo with Xeloda and Avastin on January 2016. Her last Avastin dose was 07/07/16. Last week, after anorexia that had been progressive for weeks, although she says she did not lose weight, she had sudden onset of severe abdominal pain, came to the ER and was found to have a perforated duodenal ulcer. Emergency surgery to oversew the perforation was done by Dr. Jones. Post op UGI revealed very minimal extravasation at the duodenal bed. She has been started on TPN, which Dr. Jones says he plans to d/c tomorrow or the next day, and he plans to liberalize her diet. (She wants "[employer]" cold cereal with almond milk) She still has a surgical drain, but is improving in energy and comfort. She has ambulated here in the hospital. She has pain when she moves that is adequately controlled on her current opioid regimen. She has mild dyspnea on exertion (and underlying COPD, with pleural effusions vs. basilar consolidations on CXR). She has a lot of eructation but minimal nausea, and her ileostomy has good output. Lab Values: Abnormal Lab Results 07/23/16 07/23/16 07/23/16 12:13 16:04 21:08 WBC RBC Hgb Hct MCV MCH MCHC RDW Plt Count MPV Neut % (Auto) Lymph % (Auto) Antelope % (Auto) Eos % (Auto) Baso % (Auto) Absolute Neuts (auto) Absolute Lymphs (auto) Absolute Monos (auto) Absolute Eos (auto) Absolute Basos (auto) Absolute Nucleated RBC Nucleated RBC % Sodium Potassium Chloride Carbon Dioxide Anion Gap BUN Creatinine Est GFR ( Amer) Est GFR (Non-Af Amer) BUN/Creatinine Ratio Glucose POC Glucose (mg/dL) 157 H 157 H 188 H Calcium Phosphorus Magnesium 07/24/16 07/24/16 07/24/16 00:48 06:21 06:40 WBC 12.5 H RBC 3.80 L Hgb 12.5 Hct 39 MCV 102 H MCH 33 H MCHC 32 RDW 17 H Plt Count 255 MPV 9 Neut % (Auto) 79.6 Lymph % (Auto) 5.5 L Antelope % (Auto) 11.2 H Eos % (Auto) 3.0 Baso % (Auto) 0.7 Absolute Neuts (auto) 10.0 H Absolute Lymphs (auto) 0.7 L Absolute Monos (auto) 1.4 H Absolute Eos (auto) 0.4 Absolute Basos (auto) 0.1 Absolute Nucleated RBC 0 Nucleated RBC % 0 Sodium 138 Potassium 3.7 Chloride 100 L Carbon Dioxide 37 H Anion Gap 1 L BUN 20 Creatinine 0.57 Est GFR ( Amer) 129.3 Est GFR (Non-Af Amer) 100.6 BUN/Creatinine Ratio 35.1 H Glucose 91 POC Glucose (mg/dL) 158 H Calcium 8.2 L Phosphorus Magnesium 07/24/16 07/24/16 06:40 08:09 WBC RBC Hgb Hct MCV MCH MCHC RDW Plt Count MPV Neut % (Auto) Lymph % (Auto) Antelope % (Auto) Eos % (Auto) Baso % (Auto) Absolute Neuts (auto) Absolute Lymphs (auto) Absolute Monos (auto) Absolute Eos (auto) Absolute Basos (auto) Absolute Nucleated RBC Nucleated RBC % Sodium Potassium Chloride Carbon Dioxide Anion Gap BUN Creatinine Est GFR ( Amer) Est GFR (Non-Af Amer) BUN/Creatinine Ratio Glucose POC Glucose (mg/dL) 181 H Calcium Phosphorus 3.4 Magnesium 1.9 Laboratory Last Values WBC 12.5 10^3/ul (3.5-10.8) H 07/24/16 06:40 RBC 3.80 10^6/ul (4.0-5.4) L 07/24/16 06:40 Hgb 12.5 g/dl (12.0-16.0) 07/24/16 06:40 Hct 39 % (35-47) 07/24/16 06:40 MCV 102 fL (80-97) H 07/24/16 06:40 MCH 33 pg (27-31) H 07/24/16 06:40 MCHC 32 g/dl (31-36) 07/24/16 06:40 RDW 17 % (10.5-15) H 07/24/16 06:40 Plt Count 255 10^3/ul (150-450) 07/24/16 06:40 MPV 9 um3 (7.4-10.4) 07/24/16 06:40 Neut % (Auto) 79.6 % (38-83) 07/24/16 06:40 Lymph % (Auto) 5.5 % (25-47) L 07/24/16 06:40 Antelope % (Auto) 11.2 % (1-9) H 07/24/16 06:40 Eos % (Auto) 3.0 % (0-6) 07/24/16 06:40 Baso % (Auto) 0.7 % (0-2) 07/24/16 06:40 Absolute Neuts (auto) 10.0 10^3/ul (1.5-7.7) H 07/24/16 06:40 Absolute Lymphs (auto) 0.7 10^3/ul (1.0-4.8) L 07/24/16 06:40 Absolute Monos (auto) 1.4 10^3/ul (0-0.8) H 07/24/16 06:40 Absolute Eos (auto) 0.4 10^3/ul (0-0.6) 07/24/16 06:40 Absolute Basos (auto) 0.1 10^3/ul (0-0.2) 07/24/16 06:40 Absolute Nucleated RBC 0 10^3/ul 07/24/16 06:40 Nucleated RBC % 0 07/24/16 06:40 INR (Anticoag Therapy) 0.88 (0.89-1.11) L 07/18/16 14:00 Sodium 138 mmol/L (133-145) 07/24/16 06:21 Potassium 3.7 mmol/L (3.5-5.0) 07/24/16 06:21 Chloride 100 mmol/L (101-111) L 07/24/16 06:21 Carbon Dioxide 37 mmol/L (22-32) H 07/24/16 06:21 Anion Gap 1 mmol/L (2-11) L 07/24/16 06:21 BUN 20 mg/dL (6-24) 07/24/16 06:21 Creatinine 0.57 mg/dL (0.51-0.95) 07/24/16 06:21 Est GFR ( Amer) 129.3 (>60) 07/24/16 06:21 Est GFR (Non-Af Amer) 100.6 (>60) 07/24/16 06:21 BUN/Creatinine Ratio 35.1 (8-20) H 07/24/16 06:21 Glucose 91 mg/dL (70-100) 07/24/16 06:21 POC Glucose (mg/dL) 181 mg/dL (74-106) H 07/24/16 08:09 Calcium 8.2 mg/dL (8.6-10.3) L 07/24/16 06:21 Phosphorus 3.4 mg/dL (2.5-5.0) 07/24/16 06:40 Magnesium 1.9 mg/dL (1.9-2.7) 07/24/16 06:40 Total Bilirubin 0.40 mg/dL (0.2-1.0) 07/23/16 07:00 AST 31 U/L (13-39) 07/23/16 07:00 ALT 15 U/L (7-52) 07/23/16 07:00 Alkaline Phosphatase 107 U/L (34-104) H 07/23/16 07:00 C-Reactive Protein 96.29 mg/L (< 5.00) H 07/19/16 05:48 Total Protein 5.2 g/dL (6.4-8.9) L 07/23/16 07:00 Albumin 2.4 g/dL (3.2-5.2) L 07/23/16 07:00 Globulin 2.8 g/dL (2-4) 07/23/16 07:00 Albumin/Globulin Ratio 0.9 (1-3) L 07/23/16 07:00 Prealbumin 9 mg/dL (18-38) L 07/23/16 07:00 Triglycerides 42 mg/dL 07/23/16 07:00 Cholesterol 139 mg/dL 07/23/16 07:00 Lipase 59 U/L (11.0-82.0) 07/19/16 05:48 - Objective Active Medications: Albuterol/Ipratropium (Duoneb Neb.Yaneth*) 1 neb INH Q3H PRN PRN Reason: SHORTNESS OF BREATH Last Admin: 07/22/16 03:26 Dose: 1 neb Heparin Sodium (Porcine) (Heparin Vial(*)) 5,000 units SUBCUT Q8HR [facility] Last Admin: 07/24/16 06:45 Dose: 5,000 units Heparin Sodium (Porcine) (Heparin Flush Port (Ivad)*) 5 ml FLUSH BID KATHARINA PRN Reason: Protocol Last Admin: 07/24/16 08:34 Dose: Not Given Hydromorphone HCl (Dilaudid Iv*) 1 mg IV Q1H PRN PRN Reason: PAIN Last Admin: 07/24/16 06:45 Dose: 1 mg Metronidazole/Sodium Chloride (Flagyl 500 Mg Ivpb*) 500 mg in 100 mls @ 100 mls /hr IVPB Q8H [facility] Last Admin: 07/24/16 07:54 Dose: 100 mls/hr Levofloxacin/Dextrose (Levaquin 250 Mg Ivpremx(*)) 250 mg in 50 mls @ 50 mls/ hr IVPB Q24H [facility] Last Admin: 07/24/16 02:36 Dose: 50 mls/hr Dextrose 500 ml/ Amino Acids 850 ml/ Fat Emulsion Intravenous 250 ml/ Sodium Chloride 100 meq/ Potassium Chloride 50 meq/ Potassium Phosphate 15 mmole/ Calcium Gluconate 15 meq/ Magnesium Sulfate 10 meq/ Multivitamins 10 ml/ Trace Metals 3 ml/Phytonadione 0.2 mg/ Insulin Human Regular 12 units/Sterile Water 150 ml/Nutrition (Parenteral) 1,852.941 mls @ 60 mls/hr TPN 1700 [facility] Stop: 07/25/16 16:59 Last Admin: 07/23/16 16:52 Dose: 77.013 mls/hr Metoprolol Tartrate (Lopressor Iv*) 5 mg IV Q6H [facility] Last Admin: 07/24/16 08:34 Dose: 5 mg Pantoprazole Sodium (Protonix Iv*) 40 mg IV BID [facility] Last Admin: 07/24/16 08:34 Dose: 40 mg Vital Signs: Vital Signs: Temp Pulse Resp BP Pulse Ox 98.2 F 70 18 165/55 97 07/24/16 08:00 07/24/16 08:00 07/24/16 08:00 07/24/16 08:00 07/24/16 08:00 Patient Weight: Weight 96 lb 3.2 oz Intake and Output: Intake & Output 07/22/16 07/23/16 07/24/16 07/25/16 06:59 06:59 06:59 06:59 Intake Total 1355 3017 2446 Output Total 1030 2665 2155 Balance 325 352 291 Weight 98 lb 9.6 oz 96 lb 3.2 oz Intake: IV Fluids 623 90 237 ABX - FLAGYL 102 D5W 1/2 NS 593 LR 30 NS FLUSH 90 135 IVPB 213 315 457 ABX - FLAGYL 213 315 375 ABX - LEVOFLOXACIN 52 NS FLUSH 30 TPN/PPN 519 1512 1257 Oral 0 1100 495 Output: TOM #1 130 215 230 Urine 675 2450 1575 Ileostomy 225 350 Other: Estimated Void Small Medium Date of Last Bowel ostomy Movement # Voids 1 1 ADLs: Meal Record Start: 07/19/16 02: 00 Freq: ,,18 Status: Complete Created 07/19/16 02:00 System (Rec: 07/19/16 02:00 System ICU-M21) Document 07/19/16 09:00 [id number] (Rec: 07/19/16 09:46 [id number] ICU-C06) ADLs: Meal Record Start: 07/19/16 10: 36 Freq: Status: Active Created 07/19/16 10:36 [id number] (Rec: 07/19/16 10:36 [id number] ICU-C06) Document 07/19/16 13:00 KWE7633 (Rec: 07/19/16 13:24 KHP1015 ICU-C06) Document 07/20/16 13:43 [id number] (Rec: 07/20/16 13:44 UOE5050 SSU-C04) Document 07/21/16 20:36 PWV5419 (Rec: 07/21/16 20:37 XZY9512 SSU-C19) Document 07/22/16 10:02 IWF2618 (Rec: 07/22/16 10:04 FNJ3332 SSU-C19) Document 07/22/16 12:54 VNS2493 (Rec: 07/22/16 12:54 CGX5245 SSU-C02) Document 07/22/16 19:07 SJK6639 (Rec: 07/22/16 19:07 NFO4260 SSU-C19) Document 07/23/16 09:13 RFF3739 (Rec: 07/23/16 09:14 NWB1442 SSU-M01) Document 07/23/16 13:10 UAG5309 (Rec: 07/23/16 13:11 HOD2150 SSU-C19) Intake and Output Start: 07/19/16 02: 00 Freq: 06,14,22 Status: Complete Created 07/19/16 02:00 System (Rec: 07/19/16 02:00 System ICU-M21) Document 07/19/16 06:00 USO4905 (Rec: 07/19/16 06:16 EUJ8546 ICU-C14) Intake and Output Start: 07/19/16 10: 36 Freq: DAILY@0600,1400,2200 Status: Active Created 07/19/16 10:36 [id number] (Rec: 07/19/16 10:36 RIX3581 ICU-C06) Document 07/19/16 14:00 HSA9218 (Rec: 07/19/16 14:10 [id number] [facility]-RDC2) Document 07/19/16 15:42 GZF9971 (Rec: 07/19/16 15:42 GJI0494 ICU-C06) Document 07/19/16 19:00 WYY2101 (Rec: 07/19/16 19:00 UPL8434 SSU-C08) Document 07/19/16 20:00 NKC6973 (Rec: 07/19/16 22:03 PAF5997 SSU-C19) Document 07/19/16 20:04 YWJ8324 (Rec: 07/19/16 20:04 LAE6501 SSU-C12) Document 07/19/16 22:00 LSN5529 (Rec: 07/19/16 22:02 GRJ1245 SSU-C19) Document 07/19/16 23:57 JRD7791 (Rec: 07/19/16 23:57 ZOZ0622 SSU-C12) Document 07/20/16 02:20 IIA5217 (Rec: 07/20/16 04:28 XIP3002 SSU-C12) Document 07/20/16 04:26 WXW3250 (Rec: 07/20/16 04:26 EHE6121 SSU-M10) Document 07/20/16 06:00 MWU8580 (Rec: 07/20/16 06:25 PHK7144 SSU-M10) Document 07/20/16 06:49 UHF8917 (Rec: 07/20/16 06:50 PIY6467 SSU-M12) Document 07/20/16 08:33 OFY7575 (Rec: 07/20/16 08:33 DPV8684 SSU-C04) Document 07/20/16 11:06 SGA5231 (Rec: 07/20/16 11:06 YGJ0251 SSU-C04) Document 07/20/16 12:30 IGS1805 (Rec: 07/20/16 12:30 DYL5541 SSU-C12) Document 07/20/16 14:16 HYC3204 (Rec: 07/20/16 14:16 DVC3117 SSU-C04) Document 07/20/16 15:29 RAW3042 (Rec: 07/20/16 15:29 QWQ2922 SSU-C05) Document 07/20/16 16:35 BUU0446 (Rec: 07/20/16 16:35 MKK8938 SSU-C05) Document 07/20/16 20:56 BWL4312 (Rec: 07/20/16 20:56 TNZ9429 SSU-M10) Document 07/20/16 22:00 CNW5906 (Rec: 07/20/16 22:00 TVH6967 SSU-C50) Document 07/21/16 02:00 OOV5450 (Rec: 07/21/16 02:00 QTO5943 SSU-C05) Document 07/21/16 03:12 KQD0795 (Rec: 07/21/16 03:12 MFZ3015 SSU-M12) Document 07/21/16 05:24 JUT3642 (Rec: 07/21/16 05:24 YYP4937 SSU-C50) Document 07/21/16 10:25 PTU9832 (Rec: 07/21/16 10:25 LIU3891 SSU-C19) Document 07/21/16 11:33 LLT6138 (Rec: 07/21/16 17:33 IZK4442 SSU-M10) Document 07/21/16 14:27 EYB3321 (Rec: 07/21/16 14:34 KYC5352 SSU-C19) Document 07/21/16 17:37 DOF4079 (Rec: 07/21/16 17:37 EWN6398 SSU-M10) Document 07/21/16 18:24 WOK8331 (Rec: 07/21/16 18:25 IEH3658 SSU-C19) Document 07/21/16 20:55 FDJ7969 (Rec: 07/21/16 20:55 PGJ3314 SSU-C11) Document 07/21/16 22:42 UJA8981 (Rec: 07/21/16 22:43 EES8018 SSU-C05) Document 07/21/16 23:01 JLD9570 (Rec: 07/22/16 03:01 MWQ1178 SSU-C50) Document 07/22/16 00:00 UGJ3477 (Rec: 07/22/16 03:01 GQF9317 SSU-C50) Document 07/22/16 02:01 KKG1980 (Rec: 07/22/16 03:01 NVC4309 SSU-C50) Document 07/22/16 03:00 WKW4561 (Rec: 07/22/16 03:00 CGM5021 SSU-C50) Document 07/22/16 04:58 TGB3184 (Rec: 07/22/16 04:58 RRJ0601 SSU-C50) Document 07/22/16 08:28 CQX8786 (Rec: 07/22/16 08:28 ODM3503 SSU-C19) Document 07/22/16 10:04 WCK5860 (Rec: 07/22/16 10:04 GZH2844 SSU-C19) Document 07/22/16 12:03 GJS8284 (Rec: 07/22/16 12:03 AVW0637 SSU-C02) Document 07/22/16 12:54 KNM8550 (Rec: 07/22/16 12:54 JXA4262 SSU-C02) Document 07/22/16 14:00 PMG6661 (Rec: 07/22/16 14:50 RQW3962 SSU-C02) Document 07/22/16 15:45 RAN9374 (Rec: 07/22/16 17:07 QVE6120 SSU-C19) Document 07/22/16 16:36 DKV1881 (Rec: 07/22/16 16:36 RML0130 SSU-M10) Document 07/22/16 18:00 NBW5067 (Rec: 07/22/16 18:15 LYN5348 SSU-C19) Document 07/22/16 18:39 HGZ1534 (Rec: 07/22/16 18:39 NGN7105 SSU-C19) Document 07/22/16 20:39 KUZ1200 (Rec: 07/22/16 20:39 SFR2027 SSU-M10) Document 07/22/16 21:00 PDN4475 (Rec: 07/22/16 23:02 HBP5005 SSU-C05) Document 07/22/16 22:00 KVK3096 (Rec: 07/22/16 22:59 LMY3219 SSU-C19) Document 07/23/16 03:00 KSE5279 (Rec: 07/23/16 06:00 DEV1381 SSU-M10) Document 07/23/16 06:00 XMJ6497 (Rec: 07/23/16 10:09 EGS5636 SSU-M01) Document 07/23/16 09:04 IAA5387 (Rec: 07/23/16 09:04 KMO5629 SSU-M01) Document 07/23/16 11:37 SMS6314 (Rec: 07/23/16 11:38 BGE1257 SSU-C08) Document 07/23/16 13:10 PHV0836 (Rec: 07/23/16 13:11 CTH6763 SSU-C19) Document 07/23/16 14:00 LVW4638 (Rec: 07/23/16 15:24 TJI9779 SSU-C19) Document 07/23/16 18:40 KWD9380 (Rec: 07/24/16 07:10 WAC3792 SSU-C08) Document 07/23/16 20:58 ETM8314 (Rec: 07/23/16 20:58 MKA5986 SSU-C19) Document 07/23/16 21:35 SFE2768 (Rec: 07/24/16 00:30 UBJ4477 SSU-C12) Document 07/23/16 22:00 IWH3982 (Rec: 07/23/16 22:59 YSA4838 SSU-C19) Document 07/24/16 00:40 TEB5297 (Rec: 07/24/16 00:58 TSK2123 SSU-C12) Document 07/24/16 02:29 HSI4884 (Rec: 07/24/16 02:29 FAR5816 SSU-C10) Document 07/24/16 05:36 TES6387 (Rec: 07/24/16 05:37 VTN2538 SSU-C19) Document 07/24/16 06:33 OCO8455 (Rec: 07/24/16 06:33 QYV2920 SSU-C19) Head: Symmetrical Eyes: No Scleral Icterus Ears/Nose/Mouth/Throat: Mucous Membranes Moist Neck: NL Appearance and Movements; NL JVP Cardiovascular: NL Sounds; No Murmurs; No JVD Respiratory: Symmetrical Chest Expansion and Respiratory Effort Abdominal: - - Surgical drain in place and draining serous fluid, wounds healing well, mild right tenderness, healthy vigorous bowel sounds and good ileostomy output. Extremities: No Edema Neurological: Alert and Oriented x 3 - Assessment Assessment: We had a long discussion and the patient is familiar with hospice services from her 's demise 10 years ago. She would like to return home, where she has been living alone with her cat Junior, and says she has the resources to pay for hired in home care. She wants to be on hospice, and she certainly meets criteria for hospice with a primary diagnosis of metastatic colon cancer and a secondary of perforated duodenal ulcer. She does not want to pursue further life-prolonging measures such as TPN and chemotherapy. She wants to be kept comfortable. I spoke with her HCP/son Tad and he is in full agreement with this plan. I spoke with the transportation planner Elizabeth Gonzalez and learned that the family will need to arrange for private aids at home, and I communicated this to Tad, who is an field pipe lines supervisor living in [place]. The patient can be admitted to hospice Thursday or next Thursday, depending on when she is discharged. Thanks for asking me to see this very pleasant patient. - Plan Consult Plan (MU): Hospice - Time On Unit Date of Evaluation: 07/24/16 Hospice Consult Time in: 11:00 Hospice Consult Time Out: 12:30 Hospice Consult Time Total: 90 > 50% of Time Spend In Counseling or Coordinating Care: Yes
[2016-07-24 12:55] LABS: Hematocrit 39 % (35-47); Hemoglobin 12.9 g/dl (12.0-16.0); Mean Corpuscular HGB Conc 33 g/dl (31-36); Mean Corpuscular Hemoglobin 34 pg (27-31); Mean Corpuscular Volume 102 fL (80-97); Mean Platelet Volume 10 um3 (7.4-10.4); Red Blood Count 3.84 10^6/ul (4.0-5.4); Red Cell Distribution Width 18 % (10.5-15); White Blood Count 12.5 10^3/ul (3.5-10.8)
[2016-07-24] MEDS: TPN* 24 HR with Dextrose 50% Water* 500 ML, Amino Acid Infusion 10%* 850 ML, Lipid Emul... TPN SCH ×14 (17:24)
--- NOTE | 2016-07-24 19:19 | PN ---
Progress Note - Progress Note SOAP: Subjective: pt seen. R sided abdo pain that is slowly improving. no appetite. Remains on TPN. Appreciate palliative note Objective: af vss a and o x 3, sleepy lungs decreased BS abdo: soft/ incisional tenderness and RUQ tenderness. tender to percussion TOM serous; staple line intact no calf tenderness. Assessment: POD 5 repair of perforated ulcer, that may not be healing. UGi from 2 days ago read as leak of contrast, although not clear to me. Pt is DNR and no additional trips to OR would be recommended at this time. Plan: cont TPN for 1 more day abx advance diet OOB to ambulate pain control
[2016-07-24] MEDS: Albuterol/Ipratropium NEB.SOL* Albuterol 2.5 MG/Ipratropium 0.5 MG 3 ML INH PRN (22:23)
[2016-07-25] MEDS: HYDROmorphone INJ* 1 MG/ML CARPUJECT SYRINGE IV PRN ×4 (01:54→16:28)
[2016-07-25] MEDS: Metoprolol Tartrate IV* 1 MG/ML 5 ML VIAL IV SCH ×4 (01:58→20:29)
[2016-07-25] MEDS: Levofloxacin 250 MG IVPREMX(*) 250 MG/50 ML BAG IVPB SCH (02:59)
[2016-07-25] MEDS: Heparin VIAL(*) 5000 UNITS/ML VIAL (FIVE THOUSAND) SUBCUT SCH ×3 (06:30→22:13)
[2016-07-25] MEDS: metroNIDAZOLE IV 500 MG/100ML* 500 MG/100 ML BAG IVPB SCH ×3 (06:30→22:15)
[2016-07-25] MEDS: Pantoprazole IV* 40 MG IV SCH ×2 (07:30→20:32)
[2016-07-25 08:02] LABS: Albumin 2.1 g/dL (3.2-5.2); BUN/Creatinine Ratio 33.9 (8-20); Calcium 7.9 mg/dL (8.6-10.3); EGFR African American 117.4 (>60); EGFR Non-African American 91.3 (>60); Globulin 2.7 g/dL (2-4); Phosphorus 3.6 mg/dL (2.5-5.0); Potassium 3.6 mmol/L (3.5-5.0); Total Bilirubin 0.3 mg/dL (0.2-1.0); Total Protein 4.8 g/dL (6.4-8.9)
--- NOTE | 2016-07-25 14:47 | PN ---
Progress Note - Progress Note SOAP: Subjective: Pt reports she is feeling pretty well. She was able to eat some ice cream today. Her last TPN bag is running now. Her son reports he isn't sure what he's supposed to do. He called [facility] yesterday and they said they would come evaluate pt but they haven't come. Objective: Sitting up in a chair, A&O. PE deferred. Assessment: 86 yo woman with metastatic colorectal cancer, perforated ulcer s/p surgical repair. She is transitioning from TPN to PO and plans to go home with hospice. 24H aides need to be set up first. This is being handled by pt's son Miguel, who expresses being overwhelmed. I recommended to him that he follow up with [facility] to get care in place. He said he will call them again today. Plan: Plan is for d/c home early next weekonce aides are in place. [facility] will plan same-day admission at home upon discharge.
--- NOTE | 2016-07-25 16:30 | PN ---
Progress Note - Progress Note SOAP: Subjective: pt seen. R sided abdo pain that is slowly improving. Tolerating solids; on TPN. Appreciate palliative note Objective: af vss a and o x 3, less sleepy today abdo: soft/ incisional tenderness and RUQ tenderness. TOM serous; staple line intact no calf tenderness. Assessment: POD 6 repair of perforated ulcer Plan: d/c tpn abx OOB to ambulate pain control
--- NOTE | 2016-07-25 18:55 | PN ---
Progress Note - Progress Note SOAP: Subjective: []Eating well, ice cream and pasta today. TPN done. Pain controlled. Has been seen by palliative care and plan is for discharge with hospice. She is comfortable with that plan. I have not spoken to the son but Elsa Constantino has been in contact. Albuterol/Ipratropium (Duoneb Neb.Yaneth*) 1 neb INH Q3H PRN PRN Reason: SHORTNESS OF BREATH Last Admin: 07/24/16 22:23 Dose: 1 neb Heparin Sodium (Porcine) (Heparin Vial(*)) 5,000 units SUBCUT Q8HR [facility] Last Admin: 07/25/16 13:48 Dose: 5,000 units Heparin Sodium (Porcine) (Heparin Flush Port (Ivad)*) 5 ml FLUSH BID [facility] PRN Reason: Protocol Last Admin: 07/25/16 17:25 Dose: 5 ml Hydromorphone HCl (Dilaudid Iv*) 1 mg IV Q1H PRN PRN Reason: PAIN Last Admin: 07/25/16 16:28 Dose: 1 mg Metronidazole/Sodium Chloride (Flagyl 500 Mg Ivpb*) 500 mg in 100 mls @ 100 mls /hr IVPB Q8H [facility] Last Admin: 07/25/16 13:47 Dose: 100 mls/hr Levofloxacin/Dextrose (Levaquin 250 Mg Ivpremx(*)) 250 mg in 50 mls @ 50 mls/ hr IVPB Q24H [facility] Last Admin: 07/25/16 02:59 Dose: 50 mls/hr Metoprolol Tartrate (Lopressor Iv*) 5 mg IV Q6H [facility] Last Admin: 07/25/16 13:48 Dose: 5 mg Pantoprazole Sodium (Protonix Iv*) 40 mg IV BID [facility] Last Admin: 07/25/16 07:30 Dose: 40 mg Objective: [] Vital Signs Temp Pulse Resp BP Pulse Ox 97.6 F 78 18 181/69 94 07/25/16 16:27 07/25/16 16:27 07/25/16 17:24 07/25/16 16:27 07/25/16 16:27 HEENT- Mucosa moist, no lesions. Port right chest Decreased BS, no crackle or wheezes and good air movement. RRR S1S2 She has BS, TOM drain out, stool in colostomy bag Ext w/o edema and is warm Assessment: []86 year old metastatic cancer on Xeloda and Avastin, progressive disease from April, last bevicizumab was on 07/07 at 5 mg/kg. Now status post perforated ulcer and surgical repair. Appears to be healing well. Plan: []1. Risk of post operative complication, perforation. Largest study I could find was 75 pts with abdominal surgery on Avastin and 15% complication rate, events up to 60 days post op. This applies to Ms. Guillory, forward risk is less given recovery to date. 2. Discussed overall prognosis and value of aggressive care. Progressive disease on CT scan. Continued cancer treatment will be more toxic then what she had had to date. She is accepting that this is a terminal disease and I think hospice is reasonable. 4. HTN. On Metoprolol, with PO intake can re-start her Norvasc. 5. Follow oral intake, agree with d/c TPN
[2016-07-26] MEDS: Metoprolol Tartrate IV* 1 MG/ML 5 ML VIAL IV SCH ×4 (01:57→21:02)
[2016-07-26] MEDS: Levofloxacin 250 MG IVPREMX(*) 250 MG/50 ML BAG IVPB SCH (03:00)
[2016-07-26] MEDS: Heparin VIAL(*) 5000 UNITS/ML VIAL (FIVE THOUSAND) SUBCUT SCH ×3 (05:32→21:09)
[2016-07-26] MEDS: metroNIDAZOLE IV 500 MG/100ML* 500 MG/100 ML BAG IVPB SCH ×3 (05:33→22:27)
--- NOTE | 2016-07-26 09:36 | PN ---
Progress Note - Progress Note SOAP: Subjective: Without complaint today Tolerating diet and pain controlled Ileostomy is functioning well Objective: Temp Pulse Resp BP Pulse Ox 99.5 F 75 20 175/63 98 07/26/16 07:31 07/26/16 07:31 07/26/16 07:31 07/26/16 07:31 07/26/16 07:31 Intake & Output 07/24/16 07/25/16 07/26/16 07/27/16 06:59 06:59 06:59 06:59 Intake Total 2446 1757 2429 Output Total 2155 1955 1590 Balance 291 -198 839 Weight 96 lb 3.2 oz 105 lb Intake: IV Fluids 237 20 0 ABX - FLAGYL 102 NS FLUSH 135 20 0 IVPB 457 344 314 ABX - FLAGYL 375 214 201 ABX - LEVOFLOXACIN 52 54 50 NS FLUSH 30 76 63 TPN/PPN 0562 244 6903 Oral 495 520 820 Output: TOM #1 230 230 100 Urine 1575 1125 1400 Ileostomy 350 600 90 Other: Estimated Void Medium Medium Date of Last Bowel ostomy 1/5 Movement # Bowel Movements 2 Estimated Stool Amount Small Small # Voids 1 PEX: Comfortable in chair Lungs are clear Abd is soft and non-distended. Dressing intact TOM with small amount of serous thin [id number] Extremities without edema Assessment: POD # 8 s/p repair of perforated duodenal ulcer Metastatic rectal cancer Plan: Diet as tolerated Increase activity PPI Off TPN Plan d/c home on Thursday.
[2016-07-26] MEDS ORDERED: oxyCODONE/Acetamin 5/325 MG* TAB ONE (10:31)
[2016-07-26] MEDS: amLODIPine TAB* 5 MG PO SCH (10:37)
[2016-07-26] MEDS: oxyCODONE/Acetamin 5/325 MG* TAB PO PRN ×2 (10:37→14:33)
[2016-07-26] MEDS: Pantoprazole IV* 40 MG IV SCH ×2 (10:39→21:05)
[2016-07-27] MEDS: Metoprolol Tartrate IV* 1 MG/ML 5 ML VIAL IV SCH ×4 (03:08→21:30)
[2016-07-27] MEDS: Levofloxacin 250 MG IVPREMX(*) 250 MG/50 ML BAG IVPB SCH (03:10)
[2016-07-27] MEDS: metroNIDAZOLE IV 500 MG/100ML* 500 MG/100 ML BAG IVPB SCH ×3 (06:16→22:29)
[2016-07-27] MEDS: Heparin VIAL(*) 5000 UNITS/ML VIAL (FIVE THOUSAND) SUBCUT SCH ×3 (06:20→21:35)
[2016-07-27] MEDS: Pantoprazole IV* 40 MG IV SCH ×2 (08:31→21:33)
[2016-07-27] MEDS: amLODIPine TAB* 5 MG PO SCH (08:31)
[2016-07-27] MEDS: oxyCODONE/Acetamin 5/325 MG* TAB PO PRN ×3 (08:31→16:53)
--- NOTE | 2016-07-27 12:02 | PN ---
Progress Note - Progress Note SOAP: Subjective: [] Doing well without complaint Objective: Temp Pulse Resp BP Pulse Ox 97.1 F 74 16 123/47 94 07/27/16 11:33 07/27/16 11:33 07/27/16 11:33 07/27/16 11:33 07/27/16 11:33 Intake & Output 07/25/16 07/26/16 07/27/16 07/28/16 06:59 06:59 06:59 06:59 Intake Total 1757 2429 1245 220 Output Total 1955 1590 1055 670 Balance -198 839 190 -450 Weight 105 lb Intake: IV Fluids 20 0 20 NS FLUSH 20 0 20 IVPB 344 314 170 ABX - FLAGYL 214 201 110 ABX - LEVOFLOXACIN 54 50 60 NS FLUSH 76 63 TPN/PPN 873 1295 Oral 927 922 2789 220 Output: TOM #1 230 100 80 70 Urine 1125 1400 500 400 Colostomy 200 Ileostomy 600 90 475 Other: Estimated Void Medium Medium Medium Date of Last Bowel 1/5 ileostomy Movement # Bowel Movements 2 Estimated Stool Amount Small Small Small # Voids 1 1 PEX Comfortable Lungs are CTA Abd is soft and non-distended Dressing intact Ext without edema Assessment: POD # 9 Repair of perforated duodenal ulcer Plan: Tentative D/C tomorrow Discussed with patient and son.
[2016-07-28] MEDS: Levofloxacin 250 MG IVPREMX(*) 250 MG/50 ML BAG IVPB SCH (03:37)
[2016-07-28] MEDS: Metoprolol Tartrate IV* 1 MG/ML 5 ML VIAL IV SCH ×2 (03:37→08:31)
[2016-07-28] MEDS: metroNIDAZOLE IV 500 MG/100ML* 500 MG/100 ML BAG IVPB SCH (06:06)
[2016-07-28] MEDS: Heparin VIAL(*) 5000 UNITS/ML VIAL (FIVE THOUSAND) SUBCUT SCH (06:07)
[2016-07-28] MEDS: amLODIPine TAB* 5 MG PO SCH (08:31)
[2016-07-28] MEDS: Pantoprazole IV* 40 MG IV SCH (08:31)
--- NOTE | 2016-07-28 10:59 | PN ---
Progress Note - Progress Note SOAP: Subjective: [] awake and alert;eating small amounts;minimal pain;walking with assist Objective: []afeb;VSS;adequate UO;lungs clear bilat;heart RRR;abd:ileostomy functioning, susan intact midline incision,clean and dry,no infection;TOM drain intact with clear yellow drainage;ext:nontender Assessment:POD 9 s/p repair perforated duodenal ulcer [] Plan:possible discharge today,awaiting plan for disposition []
[2016-07-28 11:33] VITALS: BP 150/59
--- NOTE | 2016-09-04 15:20 | DS ---
DISCHARGE SUMMARY: DATE OF ADMISSION: 07/19/16 DATE OF DISCHARGE: 07/28/16 Please note, this is a late entry. HISTORY/HOSPITAL COURSE: Ms. Guillory is an 86-year-old female with metastatic rectal cancer who had been undergoing serial visits to the emergency room with prolapsed ileostomy, who presented on 07/18/16 with complaints of severe abdominal pain. Workup in the emergency room was suggestive of perforated viscus and patient went to the operating room after discussion about the risks, benefits and alternatives. The patient was recently on chemotherapy and her risks going forward were discussed with the patient. Oncology was consulted and the patient was admitted, taken to the operating room where she underwent a diagnostic laparoscopy, conversion to laparotomy and repair of a perforated duodenal ulcer with a [place] plication. Please see operative report for details. The patient was extubated and transferred to the ICU. In the ICU, she was maintained on IV fluids, antibiotics. She shows improvement and was transferred to the floor and on postoperative day #3, underwent an upper GI study. This upper GI study did show concern of extravasation of contrast in the region of the duodenal bulb consistent with perforation. Clinically, she did not appear to be suffering with this type of finding. Given her malnutrition and her grave diagnosis of metastatic disease that would not lead to additional chemotherapy, the decision was made to advance patient on to a clear diet. She had been maintained on TPN as well throughout much of her hospitalization. She was started on liquid diet and her pain was treated. The patient had TOM drain in, that was serous in quality with an inline staple line. The patient was followed for the next week where she was treated with pain medication, TOM drain was followed and patient was never noted to have any evidence of enteric fluid from the jejunostomy. For this reason, she was maintained on p.o. diet. Her TPN was tapered. The patient did understand that she would not be starting a chemotherapy and with her discomfort, she wanted a palliative consultation. This was performed on 07/24/16. Plan was set for hospice care. The patient was aware of this and I did discuss this with her. She understood my opinions and I felt that she may slowly get better but that there would be no additional procedures done on her. She was discharged home on 07/28/16. The patient went home with TOM drain in place for planned followup in my office. As this is a late entry, the patient did not wish to come to my office because of severe pain. I do not know what happened to her afterwards and this TOM drain was never removed. [id number]/[facility] #: [id number] [place]
== END 2016-07-28 13:40 | disposition hospice, home (50) | DRG 327 ==
LOC: ED 12:59 → OR 21:14 → ICU 07-19 01:50 → SSU 07-19 09:25
PROVIDERS: ADMIT Surgery; ATTEND Surgery
PROC: 0D9670Z Drainage of Stomach with Drainage Device, Via Natural or Artificial Opening (ICD-10-PCS; principal; 2016-07-19)
PROC: 0DJ04ZZ Inspection of Upper Intestinal Tract, Percutaneous Endoscopic Approach (ICD-10-PCS; 2016-07-19)
PROC: 0DQ90ZZ Repair Duodenum, Open Approach (ICD-10-PCS; 2016-07-19)
PROC: 3E1M38Z Irrigation of Peritoneal Cavity using Irrigating Substance, Percutaneous Approach (ICD-10-PCS; 2016-07-19)
PROC: 3E0436Z Introduction of Nutritional Substance into Central Vein, Percutaneous Approach (ICD-10-PCS; 2016-07-21)
DX: K26.5 Chronic or unspecified duodenal ulcer with perforation (principal); C78.7 Secondary malignant neoplasm of liver and intrahepatic bile duct; C19 Malignant neoplasm of rectosigmoid junction; R50.9 Fever, unspecified; Z66 Do not resuscitate; R05 Cough; I10 Essential (primary) hypertension; M13.862 Other specified arthritis, left knee; M13.861 Other specified arthritis, right knee; M13.842 Other specified arthritis, left hand; M13.841 Other specified arthritis, right hand; M13.879 Other specified arthritis, unspecified ankle and foot; M13.819 Other specified arthritis, unspecified shoulder; Z92.21 Personal history of antineoplastic chemotherapy; Z93.2 Ileostomy status; Z88.0 Allergy status to penicillin; Z88.1 Allergy status to other antibiotic agents; Z87.891 Personal history of nicotine dependence; Z80.0 Family history of malignant neoplasm of digestive organs; Z92.3 Personal history of irradiation; Z98.42 Cataract extraction status, left eye; Z98.41 Cataract extraction status, right eye; Z90.710 Acquired absence of both cervix and uterus; Z82.61 Family history of arthritis
CPT/HCPCS: 36415; 71010; 71020; 71275; 74177; 74246; 80048; 80053; 82465; 83690; 83735; 84100; 84134; 84478; 85025; 85610; 86140; 87040; 87070; 87077; 87186; 87205; 94640; 94760; 99232; 99233; A9270-GY; J0330; J1100; J1170; J1580; J1642; J1644; J1940; J1956; J2250; J2270; J2405; J2704; J3010; J3480; J3490; Q9967